=== PATIENT | male | born 1990 | race African-American/Black ===

== ENCOUNTER 2016-12-15 23:32 | Emergency (ER) | payer OTHER, MEDICAID ==
[~2016-12-15] VITALS: Ht 185.4 cm; Wt 79.4 kg
[2016-12-16] MEDS ORDERED: ONDANSETRON HCL 4 MG/2 ML VIAL IV ONE (01:00)
[2016-12-16] MEDS ORDERED: HYDROmorphone HCL 2 MG/ML VL IV ONE ×2 (01:00→02:45)
[2016-12-16 01:22] LABS: Basophils # (auto) 0.1 uL; Basophils % (auto) 0.8 % (0.0-2.0); CONDITION Y; Eosinophils # (auto) 0.1 uL; Eosinophils % (auto) 0.6 % (0.0-7.0); Hematocrit 39.6 % (41.0-53.0); Lymphocytes # (auto) 1.9 uL; Lymphocytes % (auto) 14.4 % (10.0-50.0); Mean Corpuscular Hemoglobin 28.1 pg (28.0-32.0); Mean Corpuscular Hgb Conc. 32.8 g/dL (32.0-36.0); Mean Corpuscular Volume 85.6 fL (80.0-100.0); Mean Platelet Volume 8.4 fL (7.4-10.4); Monocytes # (auto) 0.9 uL; Monocytes % (auto) 6.8 % (0.0-12.0); Neutrophils # (auto) 10.3 uL; Neutrophils % (auto) 77.4 % (37.0-80.0); Platelet Count (auto) 289 10^3/uL (140-450); Red Cell Distribution Width 13.9 % (11.6-16.0); White Blood Cell 13.3 10^3/uL (4.4-10.8)
[2016-12-16 01:28] LABS: INR 0.98 (0.9-1.15); Partial Thromboplastin Time 21.9 sec (22.64-33.71); Prothrombin Time 10.7 sec (9.37-12.3)
[2016-12-16 01:50] LABS: Albumin 3.6 g/dL (3.4-5.0); Calcium 8.4 mg/dL (8.5-10.1)
[2016-12-16 01:53] LABS: Bilirubin, Total 0.2 mg/dL (0.2-1.0)
[2016-12-16 01:56] LABS: Potassium 3.5 mmol/L (3.5-5.1)
[2016-12-16] MEDS ORDERED: ETOMIDATE (2MG/ML) 20ML VIAL IV ONE (02:00)
[2016-12-16] MEDS ORDERED: SUCCINYLCHOLINE CHLORIDE 20 MG/ML 10ML VIAL IV ONE (02:00)
[2016-12-16] MEDS ORDERED: LORazepam 2MG/ML-1ML VIAL ONE (02:52)
[2016-12-16] MEDS ORDERED: LEVETIRACETAM 500 MG/5ML INJ IV ONE (03:09)
[2016-12-16] MEDS ORDERED: LORazepam 2MG/ML-1ML VIAL IV ONE (03:15)
[2016-12-16] MEDS ORDERED: LEVETIRACETAM INJ 1,000 MG in SODIUM CHL 0.9% 100 ML IV ONE (03:15)
[2016-12-16 03:30] VITALS: BP 112/58
== END 2016-12-16 04:57 | disposition home or self-care (01) ==
LOC: ER 23:45
DX: S43.004A Unspecified dislocation of right shoulder joint, initial encounter (principal); S42.91XA Fracture of right shoulder girdle, part unspecified, initial encounter for closed fracture; G40.909 Epilepsy, unspecified, not intractable, without status epilepticus; F17.210 Nicotine dependence, cigarettes, uncomplicated; W19.XXXA Unspecified fall, initial encounter; Y93.89 Activity, other specified; Y99.8 Other external cause status; Y92.89 Other specified places as the place of occurrence of the external cause
CPT/HCPCS: 23650; 36415; 73020; 73030; 80053; 85025; 85610; 85730; 96365; 96375; 96376; 99285; J0330; J1170; J1953; J2060; J2405